=== PATIENT | male | born 1965 | race Two or more races ===

== ENCOUNTER 2016-02-18 09:36 | Emergency (ER) | payer MEDICAID ==
[~2016-02-18] VITALS: Ht 160 cm; Wt 74.8 kg
[~2016-02-18 09:36] MED LIST: DOXY-216 PO; METH10T PO; VALA1TAB29 PO
[2016-02-18 10:34] VITALS: BP 147/91
== END 2016-02-18 11:07 | disposition home or self-care (01) ==
LOC: ER 09:36
DX: M84.48XD Pathological fracture, other site, subsequent encounter for fracture with routine healing (principal); F17.210 Nicotine dependence, cigarettes, uncomplicated; F15.10 Other stimulant abuse, uncomplicated; Z87.442 Personal history of urinary calculi; Z88.6 Allergy status to analgesic agent; Z88.8 Allergy status to other drugs, medicaments and biological substances; G89.29 Other chronic pain; M54.9 Dorsalgia, unspecified

== ENCOUNTER 2016-04-06 12:24 | Emergency (ER) | payer MEDICAID ==
[~2016-04-06] VITALS: Ht 160 cm; Wt 77.1 kg
[2016-04-06 14:08] VITALS: BP 118/52
== END 2016-04-06 14:19 | disposition home or self-care (01) ==
LOC: ER 12:24
DX: G89.29 Other chronic pain (principal); M54.5 Low back pain; F17.210 Nicotine dependence, cigarettes, uncomplicated; F15.10 Other stimulant abuse, uncomplicated; Z88.1 Allergy status to other antibiotic agents; Z88.6 Allergy status to analgesic agent; Z87.442 Personal history of urinary calculi

== ENCOUNTER 2017-01-14 08:08 | Emergency (ER) | payer MEDICAID ==
[~2017-01-14] VITALS: Ht 160 cm; Wt 74.8 kg
[2017-01-14 08:28] VITALS: BP 132/75
== END 2017-01-14 09:18 | disposition home or self-care (01) ==
LOC: ER 08:08
DX: M54.5 Low back pain (principal); G89.29 Other chronic pain; F17.210 Nicotine dependence, cigarettes, uncomplicated; Z76.0 Encounter for issue of repeat prescription

== ENCOUNTER 2017-04-15 08:33 | Emergency (ER) | payer MEDICAID ==
[~2017-04-15] VITALS: Ht 160 cm; Wt 77.1 kg
[2017-04-15 08:46] VITALS: BP 120/77
== END 2017-04-15 10:40 | disposition home or self-care (01) ==
LOC: ER 08:36
DX: G89.29 Other chronic pain (principal); M54.5 Low back pain; F17.210 Nicotine dependence, cigarettes, uncomplicated; Z88.8 Allergy status to other drugs, medicaments and biological substances; Z88.6 Allergy status to analgesic agent; Z76.0 Encounter for issue of repeat prescription; Z87.442 Personal history of urinary calculi

== ENCOUNTER 2018-10-18 17:07 | Emergency (ER) | payer MEDICAID ==
[~2018-10-18] VITALS: Ht 160 cm; Wt 77.1 kg
[2018-10-18 17:21] VITALS: BP 129/79
[2018-10-18 17:54] LABS: Urine Bacteria NONE SEEN /hpf (None Seen); Urine Blood Negative /uL (Negative); Urine Specific Gravity 1.014 (1.001-1.035); Urine WBC 8 /hpf (0 - 3)
[2018-10-18 17:56] LABS: Basophils # (auto) 0.1 uL; Basophils % (auto) 0.4 % (0.0-2.0); Eosinophils # (auto) 0.1 uL; Eosinophils % (auto) 0.3 % (0.0-7.0); Hematocrit 38.2 % (41.0-53.0); Hemoglobin 11.9 g/dL (13.5-17.5); Lymphocytes # (auto) 1.7 uL; Lymphocytes % (auto) 8.2 % (10.0-50.0); Mean Corpuscular Hemoglobin 23.2 pg (28.0-32.0); Mean Corpuscular Hgb Conc. 31.3 g/dL (32.0-36.0); Mean Corpuscular Volume 74.1 fL (80.0-100.0); Monocytes # (auto) 1.5 uL; Monocytes % (auto) 7.4 % (0.0-12.0); Neutrophils % (auto) 83.7 % (37.0-80.0); Platelet Count (auto) 207 10^3/uL (140-450); Red Blood Cells 5.15 10^6/uL (4.5-5.90); Red Cell Distribution Width 15.9 % (11.8-14.3); White Blood Cell 20.4 10^3/uL (4.4-10.8)
[2018-10-18 18:12] LABS: Albumin 3.5 g/dL (3.4-5.0); Calcium 8.4 mg/dL (8.5-10.1)
[2018-10-18 18:15] LABS: BUN/Creatinine Ratio 11.5; Bilirubin, Total 0.9 mg/dL (0.2-1.0)
[2018-10-18] MEDS ORDERED: traMADol HCL 50 MG TAB PO ONE (20:30)
[2018-10-18] MEDS ORDERED: cefTRIAXone SOD 1,000 MG VL IM ONE (20:45)
[2018-10-18] MEDS ORDERED: LIDOCAINE 1% HCL (LOCAL ANESTH.) INJ 20ML MDV ONE (20:54)
== END 2018-10-18 21:20 | disposition home or self-care (01) ==
LOC: ER 17:27
DX: N45.1 Epididymitis (principal); F17.210 Nicotine dependence, cigarettes, uncomplicated; F15.90 Other stimulant use, unspecified, uncomplicated; Z88.6 Allergy status to analgesic agent; Z88.5 Allergy status to narcotic agent; Z79.899 Other long term (current) drug therapy; Z87.442 Personal history of urinary calculi
CPT/HCPCS: 36415; 76870; 80053; 81001; 85025; 96372; 99284; J0696; J2001

== ENCOUNTER 2023-04-17 08:14 | Emergency (ER) | payer MEDICAID ==
[~2023-04-17] VITALS: Ht 160 cm; Wt 79.2 kg
[~2023-04-17 08:14] MED LIST changes: -DOXY-216 PO; +DOXY-286 PO
[2023-04-17 09:08] VITALS: BP 153/81; RESP 16; TEMP 98.1; O2SAT 99
[2023-04-17 09:12] VITALS: PULSE 77
== END 2023-04-17 09:19 | disposition home or self-care (01) ==
LOC: ER 08:14
DX: Z00.8 Encounter for other general examination (principal); F17.210 Nicotine dependence, cigarettes, uncomplicated; Z88.6 Allergy status to analgesic agent
CPT/HCPCS: 93005